=== PATIENT | male | born 1965 | race Caucasian/White ===

== ENCOUNTER 2017-12-09 09:02 | Day surgery (SDC) | payer OTHER ==
[2017-12-09] MEDS ORDERED: BUPIVACAINE 0.25% (MPF) 30 ML INJ (13:07)
[2017-12-09] MEDS ORDERED: LIDOCAINE 2% (SDV) 5 ML INJ (13:24)
[2017-12-09] MEDS ORDERED: SUCCINYLCHOLINE CHLORIDE 100 MG/5 ML SYG IV (13:24)
[2017-12-09] MEDS ORDERED: ROCURONIUM 50 MG INJ (13:24)
[2017-12-09] MEDS ORDERED: PROPOFOL 20 ML (13:24)
[2017-12-09] MEDS ORDERED: MIDAZOLAM 1 MG/ML 2 ML INJ (13:25)
[2017-12-09] MEDS ORDERED: FENTAnyl 50 MCG/ML VIAL (13:25)
[2017-12-09] MEDS ORDERED: ROPIVACAINE 0.5 % 30 ML VIAL (13:25)
[2017-12-09] MEDS ORDERED: FENTAnyl 50 MCG/ML VIAL IV (13:30)
[2017-12-09] MEDS ORDERED: hydrALAzine 20 MG INJ IV (13:30)
[2017-12-09] MEDS ORDERED: LABETALOL HCL 20MG INJ IV (13:30)
[2017-12-09] MEDS ORDERED: OXYCODONE/ACETAMINOPHEN (5/325) TAB PO (13:30)
[2017-12-09] MEDS ORDERED: PROCHLORPERAZINE 10 MG INJ IV (13:30)
[2017-12-09] MEDS ORDERED: DIPHENHYDRAMINE 50 MG INJ IV (13:30)
[2017-12-09] MEDS ORDERED: PHENYLephrine (100 MCG/ML) 5ML SYG (13:31)
[2017-12-09] MEDS ORDERED: CEFAZOLIN 1 GM INJ (13:51)
[2017-12-09] MEDS ORDERED: FAMOTIDINE 20 MG INJ (13:51)
[2017-12-09] MEDS ORDERED: ONDANSETRON 4 MG INJ (13:51)
[2017-12-09] MEDS ORDERED: EPHEDrine SULFATE 50 MG/5 ML SYG (13:51)
[2017-12-09] MEDS ORDERED: DEXAMETHASONE 4 MG/ML 1 ML INJ (13:51)
[2017-12-09] MEDS ORDERED: NEOSTIGMINE 3 MG/3 ML SYRINGE (14:18)
[2017-12-09] MEDS ORDERED: GLYCOPYRROLATE 0.4 MG INJ (14:18)
[2017-12-09] MEDS ORDERED: SUGAMMADEX SODIUM 200 MG/2 ML VIAL IV ×2 (14:25→14:28)
[2017-12-09] MEDS ORDERED: ACETAMINOPHEN 1000MG/100ML IV 100 ML (14:29)
[2017-12-09] MEDS: HYDROCODONE/APAP (5/325) TAB PO (14:30)
[2017-12-09] MEDS: HYDROmorphONE 1 MG/5 ML IV SYRINGE IV ×3 (14:52→15:05)
[2017-12-09] MEDS: ONDANSETRON 4 MG INJ IV (14:56)
[2017-12-09] MEDS: MEPERIDINE 25 MG INJ IV (15:10)
== END 2017-12-09 16:50 | disposition home or self-care (01) ==
LOC: SDS 09:02
DX: K80.10 Calculus of gallbladder with chronic cholecystitis without obstruction (principal)
CPT/HCPCS: 47562; 88304